=== PATIENT | male | born 1985 | race Caucasian/White ===

== ENCOUNTER → 2016-05-22 | Day surgery (SDC) | payer OTHER ==
[~2016-05-22] VITALS: Ht 170.2 cm; Wt 68.0 kg
--- NOTE | 2016-05-22 15:36 | Operative Report ---
Operative/Inv Procedure Report Surgery Date: 05/22/16 Name of Procedure: All laparoscopic right inguinal hernia repair Pre-Operative Diagnosis: Right inguinal hernia Post-Operative Diagnosis: Same Estimated Blood Loss: scant Surgeon/Support Services Coordinator: ABBY DIETZ,DON Caldwell/Jovon TRISTAN Anesthesia: general endotracheal tube Implants: Parietex mesh Operative/Procedure Note Note: After informed consent patient brought to the operating room and laid supine. Gen. anesthesia was obtained. His abdomen was prepped and draped. Skin below the umbilicus was after local anesthesia and a transverse incision made sharply. We dissected down to the right-sided rectus and incised transversely. Stay sutures were placed in the rectus muscle retracted laterally. A plane behind it was developed with a peanut through which a dissecting balloon was placed. The balloon was inflated under direct vision the camera then deflated and replaced with a blunt Combs port. Gas was instilled. 2, 5 mm ports were placed in the infraumbilical midline, after local anesthesia was instilled and under direct vision the camera. Began or dissection at the pubis and delineated Tim's ligament. There was a diminutive direct hernia. We then came laterally and developed the iliopubic tract. There is a moderate size indirect sac which was delivered from the internal ring and reflected medially. There is a small cord lipoma which was extracted placed medially. Then placed a piece of right-sided Parietex mesh into the cavity. It was placed around the cord structures re- create the internal ring and cover the femoral and direct spaces. Once as happy with the placement of mesh we allowed the gas to escape on maintaining proper orientation of. The ports were then delivered and fascia closed with 0 Vicryl suture. Skin incisions closed with 4-0 Vicryl. Steri-Strips and sterile dressing applied. Sponge and needle counts are correct Findings: Indirect CC: KEVON DIETZ,TRISTAN Aleman
== END ==
LOC: STS 01:38
DX: K40.90 Unilateral inguinal hernia, without obstruction or gangrene, not specified as recurrent (principal)
CPT/HCPCS: C1781; J0131; J0690; J1885; J2250